=== PATIENT | male | born 1990 | race African-American/Black ===

== ENCOUNTER 2018-03-20 10:07 | Emergency (ER) | payer OTHER ==
[2018-03-20 10:14] VITALS: BP 137/69; PULSE 138; TEMP 98.3; BMI 22.8
[2018-03-20] MEDS ORDERED: IBUPROFEN 600 MG TABLET (FP) PO ONE ×2 (10:30→10:34)
--- NOTE | 2018-03-20 11:14 | PDOC ---
History of Present Illness - General Chief Complaint: Pain Stated Complaint: RIGHT KNEE SWELLING Time Seen by Provider: 03/20/18 10:16 History Source: Patient Exam Limitations: No Limitations - History of Present Illness Initial Comments: 03/20/18 11:16 28-year-old male presents to ED with complaints of right Achilles tendon discomfort worsened with ambulation for the past 2 days. Patient also stating yesterday when he flexed his foot he felt pain in his right calf. Patient denies recent travel, recent illness but states please basketball daily and pain began after he was playing 3 days ago. Patient states no history of clotting disorder, smoking history, recent surgery, recent travel. Severity: mild Associated Symptoms: reports: denies symptoms Past History - Travel Traveled outside of the country in the last 30 days: No Close contact w/someone who was outside of country & ill: No - Past Medical History Allergies/Adverse Reactions: Allergies Allergy/AdvReac Type Severity Reaction Status Date / Time No Known Drug Allergies Allergy Verified 07/14/15 21:01 Home Medications: Ambulatory Orders Multivitamin [Multiple Vitamins] 1 each PO DAILY 03/20/18 COPD: No - Immunization History Immunization Up to Date: Yes - Suicide/Smoking/Psychosocial Hx Smoking History: Never smoked Have you smoked in the past 12 months: No Hx Alcohol Use: No Drug/Substance Use Hx: No Substance Use Type: None Patient Lives Alone: No Lives with/in: parents Review of Systems - Review of Systems Able to Perform ROS?: Yes Constitutional: No: Symptoms Reported HEENTM: No: Symptoms Reported Respiratory: No: Symptoms reported Cardiac (ROS): No: Symptoms Reported ABD/GI: No: Symptoms Reported : No: Symptoms Reported Musculoskeletal: Yes: Muscle Pain (rt calf and achilles tendon) Integumentary: No: Symptoms Reported Neurological: No: Symptoms reported Hematologic/Lymphatic: No: Symptoms Reported *Physical Exam - Vital Signs Last Vital Signs Temp Pulse Resp BP Pulse Ox 98.3 F 138 H 18 137/69 98 03/20/18 10:12 03/20/18 10:12 03/20/18 10:12 03/20/18 10:12 03/20/18 10:12 - Physical Exam General Appearance: Yes: Nourished, Appropriately Dressed. No: Apparent Distress Neck: positive: Supple Respiratory/Chest: positive: Lungs Clear, Normal Breath Sounds. negative: Respiratory Distress, Accessory Muscle Use Cardiovascular: positive: Regular Rhythm, Tachycardia (122 on exam). negative: Murmur Gastrointestinal/Abdominal: positive: Soft. negative: Tenderness Extremity: positive: Normal Capillary Refill, Normal Inspection, Normal Range of Motion, Tender (mild over achiiles tendon. FROM of tendon) Integumentary: positive: Normal Color, Warm, Moist Neurologic: positive: Motor Strength 5/5 (ambulatory) Moderate Sedation - Procedure Monitoring Vital Signs: Procedure Monitoring Vital Signs Temperature 98.3 F 03/20/18 10:12 Pulse Rate 138 H 03/20/18 10:12 Respiratory Rate 18 03/20/18 10:12 Blood Pressure 137/69 03/20/18 10:12 O2 Sat by Pulse Oximetry (%) 98 03/20/18 10:12 ED Treatment Course - RADIOLOGY Radiology Studies Ordered: Category Date Time Status DUPLEX VASCUL US-1 LEG [US] Stat Ultrasound 03/20/18 10:30 Ordered - Medications Given in the ED: ED Medications Discontinued Medications Generic Name Dose Route Start Last Admin Trade Name Génesis PRN Reason Stop Dose Admin Ibuprofen 600 mg 03/20/18 10:30 03/20/18 10:35 Motrin - PO 03/20/18 10:31 600 mg ONCE ONE Administration Medical Decision Making - Medical Decision Making 03/20/18 11:00 Chief complaint: Right Achilles tendon tenderness for the past 2 days after playing basketball. Patient also concerned since he had right calf pain when he flexed his ankle. Exam. Patient had mild tenderness to the right Achilles tendon negative Homans no swelling no right calf tenderness. Patient tachycardic at 122 on exam. Plan patient ordered for Motrin and duplex of the lower extremity to rule out DVT. Patient states has elevated heart rate when going to his doctor or the emergency room has no cardiac complaints 03/20/18 12:25 Duplex negative for DVT. Patient has a 7 x 5 mm left popliteal Stevens's cyst. Patient states symptoms have resided. Patient recommended to take NSAID such as Motrin rest, and apply heat *DC/Admit/Observation/Transfer Diagnosis at time of Disposition: Achilles tendon sprain - Discharge Dispostion Disposition: HOME Condition at time of disposition: Good - Referrals - Patient Instructions Printed Discharge Instructions: [facility] Additional Instructions: Please take Motrin 4-600 mg every 8 hours for adequate inflammation and pain control. Rest and avoid trigger movements. Apply heat at this moment - Post Discharge Activity
== END 2018-03-20 12:30 | disposition home or self-care (01) ==
LOC: JER 10:07
DX: S86.011A Strain of right Achilles tendon, initial encounter (principal); X50.0XXA Overexertion from strenuous movement or load, initial encounter; Y93.67 Activity, basketball; Y92.310 Basketball court as the place of occurrence of the external cause; Y99.8 Other external cause status; M71.22 Synovial cyst of popliteal space [Baker], left knee
CPT/HCPCS: 93971-TC; 99282-25

== ENCOUNTER 2019-04-14 19:03 | Emergency (ER) | payer OTHER ==
[2019-04-14 19:19] VITALS: BP 139/75; TEMP 98.1; BMI 22.4
--- NOTE | 2019-04-14 19:23 | PDOC ---
Rapid Medical Evaluation Chief Complaint: Cold Symptoms Time Seen by Provider: 04/14/19 19:19 Medical Evaluation: Allergies Allergy/AdvReac Type Severity Reaction Status Date / Time No Known Drug Allergies Allergy Verified 07/14/15 21:01 Vital Signs Temp Pulse Resp BP Pulse Ox 98.1 F 120 H 18 139/75 100 04/14/19 19:16 04/14/19 19:16 04/14/19 19:16 04/14/19 19:16 04/14/19 19:16 04/14/19 19:20 Pt c/o: cough, phlegm, sob with excessive coughing, took mucinex and theraflu today Pt on brief exam: tachy, afebrile, lcta Pt ordered for: none Pt to proceed to the ED Discharge Disposition - Diagnosis Cough - Referrals - Patient Instructions - Post Discharge Activity
[2019-04-14 19:32] VITALS: PULSE 96
--- NOTE | 2019-04-14 19:32 | PDOC ---
History of Present Illness - General Chief Complaint: Cold Symptoms Stated Complaint: SOB Time Seen by Provider: 04/14/19 19:19 - History of Present Illness Initial Comments: 04/14/19 19:31 29-year-old male without comorbidities presents for evaluation after a resolving upper respiratory infection. He states he would like to be checked for coronavirus. He did comment on his heart rate and says he has a history of anxiety when he sees doctors. He has a resolving cough no systemic symptoms no recent travel no sick contacts Past History - Past Medical History Allergies/Adverse Reactions: Allergies Allergy/AdvReac Type Severity Reaction Status Date / Time No Known Drug Allergies Allergy Verified 07/14/15 21:01 Home Medications: Ambulatory Orders Multivitamin [Multiple Vitamins] 1 each PO DAILY 03/20/18 COPD: No - Immunization History Immunization Up to Date: Yes - Psycho Social/Smoking Cessation Hx Smoking History: Never smoked Have you smoked in the past 12 months: No Hx Alcohol Use: No Drug/Substance Use Hx: No Substance Use Type: None Review of Systems - Review of Systems Constitutional: No: Fever Respiratory: Yes: Cough *Physical Exam - Vital Signs Last Vital Signs Temp Pulse Resp BP Pulse Ox 98.1 F 120 H 18 139/75 100 04/14/19 19:16 04/14/19 19:16 04/14/19 19:16 04/14/19 19:16 04/14/19 19:16 - Physical Exam 04/14/19 19:31 GENERAL: The patient is awake, alert, and fully oriented, in no acute distress. HEAD: Normal with no signs of trauma. EYES: sclera anicteric, conjunctiva clear. ENT: Ears normal tympanic membranes normal oropharynx clear uvula midline NECK: Normal range of motion LUNGS: Breath sounds equal, clear to auscultation bilaterally. No wheezes, and no crackles. HEART: S1 and S2 without murmur, rub or gallop. ABDOMEN: Soft, nontender, normoactive bowel sounds. No guarding, no rebound. No masses. EXTREMITIES: Normal range of motion, no edema. No clubbing or cyanosis. No cords, erythema, or tenderness. NEUROLOGICAL: Cranial nerves II through XII grossly intact. PSYCH: Normal mood, normal affect. SKIN: Warm, Dry, normal turgor, no rashes or lesions noted. Medical Decision Making - Medical Decision Making 04/14/19 19:31 Discussed supportive care Mucinex for viral upper respiratory infection I have reviewed the pathophysiology with the patient. They are in agreement with the treatment plan all questions were answered to their satisfaction. Understanding for follow-up without fail was also conveyed to the patient. Again they are in agreement. Discharge - Discharge Information Problems reviewed: Yes Clinical Impression/Diagnosis: Cough Condition: Stable Disposition: HOME - Admission No - Follow up/Referral Referrals: Chuy John MD [Staff Physician] - - Patient Discharge Instructions Additional Instructions: Supportive care. Maintain hydration with Pedialyte. Tylenol and Motrin as directed for fever and body aches. Return to the emergency room for worsening symptoms. And without fail follow-up with your primary care physician in 1 to 2 days for further evaluation and treatment options. - Post Discharge Activity
== END 2019-04-14 19:37 | disposition home or self-care (01) ==
LOC: JERFT 19:03
DX: R05 Cough (principal)
CPT/HCPCS: 99281-25

== ENCOUNTER 2022-10-24 05:54 | Emergency (ER) | payer OTHER ==
[2022-10-24 06:01] VITALS: BMI 26.8
[2022-10-24] MEDS ORDERED: ONDANSETRON 4 MG TABLET PO ONE (06:38)
[2022-10-24] MEDS ORDERED: ACETAMINOPHEN 500 MG TABLET (FP) PO ONE (06:38)
[2022-10-24] MEDS ORDERED: ONDANSETRON *ODT* 4 MG TABLET ONE (06:45)
[2022-10-24] MEDS ORDERED: ACETAMINOPHEN 325 MG TABLET (FP) ONE (06:45)
[2022-10-24] MEDS ORDERED: MAG HYDROX/AL HYDROX/SIMETH 30 ML UNIT-DOSE CUP PO ONE (07:26)
[2022-10-24] MEDS ORDERED: MAG HYDROX/AL HYDROX/SIMETH 30 ML UNIT-DOSE CUP ONE (07:37)
[2022-10-24 08:15] LABS: CHLORIDE 106 mmol/L (98-107); SODIUM 123 mmol/L (136-145)
[2022-10-24 08:17] LABS: ALBUMIN 3.7 g/dl (3.4-5.0); BLOOD UREA NITROGEN 15.9 mg/dL (7-18); CALCIUM 8.2 mg/dL (8.5-10.1); CO2 26 mmol/L (21-32); GLUCOSE,RANDOM 115 mg/dL (74-106)
[2022-10-24 08:20] LABS: CREATININE 1.7 mg/dL (0.55-1.3)
[2022-10-24 08:21] LABS: TOT PROT 9.8 g/dl (6.4-8.2)
[2022-10-24] MEDS ORDERED: SODIUM CHLORIDE 0.9% 500 ML INFUS.BAG IV ONE (08:32)
[2022-10-24 08:33] LABS: ANION GAP -9 MMOL/L (8-16); POTASSIUM > 10.0 mmol/L (3.5-5.1)
[2022-10-24 08:48] LABS: HEMATOCRIT 45.5 % (35.4-49); HEMOGLOBIN 15.2 GM/dL (11.7-16.9); LYMPH % 8.2 % (8-40); MCH 29.5 pg (25.7-33.7); MCHC 33.4 g/dl (32.0-35.9); MEAN CELL VOLUME 88.2 fl (80-96); MEAN PLT VOLUME 8.5 fl (7.5-11.1); MONO % 4.3 % (3.8-10.2); NEUT % 87.5 % (42.8-82.8); PLATELET COUNT 153 10^3/uL (134-434); RBC 5.16 M/mm3 (4.00-5.60); RDW 14.4 % (11.9-15.9); WHITE BLOOD COUNT 11.4 K/mm3 (4.0-10.0)
[2022-10-24 09:43] LABS: POTASSIUM 4.2 mmol/L (3.5-5.1)
[2022-10-24 09:44] LABS: ALBUMIN 4.2 g/dl (3.4-5.0); BLOOD UREA NITROGEN 15.2 mg/dL (7-18); CALCIUM 8.9 mg/dL (8.5-10.1)
[2022-10-24 09:47] LABS: EPI CELLS 3 /uL (0-25.1); HYALINE CASTS 0 /uL (0-3.1); PH,URINE 5.5 (5.0-8.0); URINE APPEARANCE CLEAR; URINE BACTERIA 6 /uL (0-1359); URINE BILIRUBIN NEGATIVE (NEGATIVE); URINE COLOR YELLOW; URINE GLUCOSE (UA) NEGATIVE (NEGATIVE); URINE KETONE TRACE (NEGATIVE); URINE LEUK ESTERASE TRACE (NEGATIVE); URINE NITRITE NEGATIVE (NEGATIVE); URINE PROTEIN NEGATIVE (NEGATIVE); URINE RBC 81 /uL (0-23.9); URINE UROBILINOGEN 0.2 mg/dL (0.2-1.0); URINE WBC 8 /uL (0-25.8)
[2022-10-24 09:48] LABS: CREATININE 1.6 mg/dL (0.55-1.3)
[2022-10-24 09:49] LABS: BILIRUBIN,TOTAL 0.6 mg/dL (0.2-1)
[2022-10-24 10:19] LABS: TOT PROT 7.4 g/dl (6.4-8.2)
[2022-10-24 10:24] VITALS: TEMP 98.2
[2022-10-24 13:56] VITALS: BP 151/76; PULSE 104; RESP 20
== END 2022-10-24 14:18 | disposition home or self-care (01) ==
LOC: JER 05:54
DX: R10.32 Left lower quadrant pain (principal); R11.10 Vomiting, unspecified; N20.0 Calculus of kidney
CPT/HCPCS: 36415; 74177-TC; 80053; 81003; 84439; 84443; 85025; 87086; 99285-25